=== PATIENT | male | born 1990 | race Caucasian/White ===

== ENCOUNTER 2019-09-25 16:56 | Inpatient (IN) | payer MEDICAID ==
[~2019-09-25] VITALS: Ht 172.7 cm; Wt 76.2 kg
[2019-09-25] MEDS ORDERED: OLAN7.5T2 PO (17:37)
[2019-09-25] MEDS ORDERED: DIVA-78 PO (17:37)
[2019-09-25] MEDS ORDERED: INFLUENZA VIRUS VACCINE QVS 2019-20 (3YR+)/PF 60 MCG/0.5 ML SYRINGE IM ONE (17:45)
[2019-09-25] MEDS ORDERED: ZOLPIDEM TARTRATE 10 MG TABLET PO PRN (17:45)
[2019-09-25 18:00] VITALS: BP 103/94
[2019-09-25 19:14] VITALS: BP 132/88
[2019-09-26 01:52] VITALS: BP 130/68
[2019-09-26] MEDS: LORazepam 2 MG TABLET PO PRN (02:08)
[2019-09-26 07:59] LABS: BASOPHILS % (AUTO) 0.6 % (0.0-2.0); EOSINOPHILS % (AUTO) 3.9 % (1.0-6.0); HEMOGLOBIN 16.9 g/dL (13.5-17.5); LYMPHOCYTES # (AUTO) 2.2 K/uL (1.0-4.8); MEAN CORPUSCULAR HEMOGLOBIN 31.1 pg (26.0-34.0); MEAN CORPUSCULAR HGB CONC 34.6 G/dL (31.0-37.0); MEAN CORPUSCULAR VOLUME 90 fL (80-100); MONOCYTES # (AUTO) 0.5 K/uL (0.1-1.0); MONOCYTES % (AUTO) 6.9 % (2.0-9.0); NEUTROPHILS # (AUTO) 3.7 K/uL (1.8-7.7); NEUTROPHILS % (AUTO) 55.6 % (40.0-70.0); PLATELET COUNT (AUTO) 272 K/uL (150-450); RED BLOOD CELL COUNT(AUTO) 5.45 MIL/uL (4.50-5.90); RED CELL DISTRIBUTION WIDTH 12.6 % (11.5-14.5)
[2019-09-26 08:07] LABS: HEMOGLOBIN A1C 5.6 % (4.5-6.2)
[2019-09-26] MEDS: HALOPERIDOL 5 MG TABLET PO PRN (08:28)
[2019-09-26 08:29] LABS: ALANINE AMINOTRANSFERASE 39 U/L (12-78); ALKALINE PHOSPHATASE 102 U/L (46-116); ANION GAP 8 mmol/L (8-16); ASPARTATE AMINOTRANSFERASE 11 U/L (15-37); BILIRUBIN,TOTAL 0.7 mg/dL (0.1-1.0); CALCIUM, TOTAL 9.4 mg/dL (8.8-10.5); CARBON DIOXIDE 29 mmol/L (22-29); CHLORIDE 104 mmol/L (98-107); CHOL/HDL RATIO 3.4 (4.2-7.3); CHOLESTEROL 147 mg/dL (131-200); FREE T4 (FREE THYROXINE) 1.14 ng/dL (0.76-1.46); GLOMERULAR FILTR. RATE CALC > 60 mL/min (>60); GLUCOSE,RANDOM 78 mg/dL (70-110); HDL CHOLESTEROL 43 mg/dL (40-60); LDL CHOL (CALC.) 92 mg/dL (0-130); POTASSIUM 3.9 mmol/L (3.5-5.1); SODIUM SERUM 141 mmol/L (136-145); THYROID STIMULATING HORMONE 1.85 uIU/mL (0.36-3.74); TOTAL PROTEIN, SERUM 7.4 g/dL (6.4-8.2); TRIGLYCERIDES 58 mg/dL (15-150); UREA NITROGEN, BLOOD 10 mg/dL (7-18)
[2019-09-26 08:32] VITALS: BP 115/63
[2019-09-26] MEDS ORDERED: MAG HYDROX/AL HYDROX/SIMETH ES 30 ML SUSPENSION UDCUP PO PRN (10:30)
[2019-09-26] MEDS ORDERED: CloNIDine HCL 0.1 MG TABLET PO PRN (10:30)
[2019-09-26] MEDS ORDERED: GuaiFENesin/D-METHORPHAN [SUGAR-FREE] 200-20MG/10 ML SYRUP UDCUP PO PRN (10:30)
[2019-09-26] MEDS ORDERED: ONDANSETRON HCL 4 MG TABLET PO PRN (10:30)
[2019-09-26] MEDS ORDERED: PETROLATUM,WHITE 28 GM JELLY TP PRN (10:30)
[2019-09-26] MEDS ORDERED: ACETAMINOPHEN 325 MG TABLET PO PRN (10:30)
[2019-09-26] MEDS ORDERED: DOCUSATE SODIUM 100 MG CAPSULE PO PRN (10:30)
[2019-09-26] MEDS ORDERED: MAGNESIUM HYDROXIDE SUSPENSION 30 ML UDCUP PO PRN (10:30)
[2019-09-26] MEDS ORDERED: IBUPROFEN 400 MG TABLET PO PRN (10:30)
[2019-09-26] MEDS ORDERED: LOPERAMIDE HCL 2 MG CAPSULE PO PRN (10:30)
[2019-09-26] MEDS ORDERED: ALBUTEROL SULFATE HFA 90 MCG/PUFF 8 GM INHALER IH PRN (10:30)
[2019-09-26] MEDS ORDERED: NICOTINE 14 MG/24 HOUR PATCH TD PRN (10:30)
[2019-09-26] MEDS: DIVALPROEX SODIUM 500 MG DR TABLET PO SCH (20:16)
[2019-09-26] MEDS: OLANZapine 7.5 MG TABLET PO SCH (20:16)
[2019-09-26 20:28] VITALS: BP 117/67
[2019-09-27 06:22] VITALS: BP 119/74
[2019-09-27 08:04] LABS: APPEARANCE,URINE CLEAR (CLEAR); BILIRUBIN,URINE NEGATIVE (NEGATIVE); GLUCOSE, URINE (UA) NEGATIVE (NEGATIVE); KETONES,URINE NEGATIVE (NEGATIVE); LEUKOCYTE ESTERASE ,URINE NEGATIVE (NEGATIVE); NITRATE,URINE NEGATIVE (NEGATIVE); OCCULT BLOOD,URINE NEGATIVE (NEGATIVE); PH,URINE 6.5 (5.0-8.0); PROTEIN,URINE NEGATIVE (NEGATIVE); UROBILINOGEN,URINE 0.2 mg/dL (<=1.0)
[2019-09-27 08:05] VITALS: BP 122/62
[2019-09-27 08:10] LABS: AMPHET/METH SCREEN,URINE NEGATIVE (NEGATIVE); BARBITURATE SCREEN, URINE NEGATIVE (NEGATIVE); BENZODIAZEPINES SCREEN,URINE NEGATIVE (NEGATIVE); CANNABINOID SCREEN,URINE NEGATIVE (NEGATIVE); COCAINE SCREEN,URINE NEGATIVE (NEGATIVE); METHADONE SCREEN, URINE NEGATIVE (NEGATIVE); OPIATE SCREEN,URINE NEGATIVE (NEGATIVE); PHENCYCLIDINE SCREEN,URINE NEGATIVE (NEGATIVE)
[2019-09-27 16:06] VITALS: BP 115/70
[2019-09-27] MEDS: OLANZapine 7.5 MG TABLET PO SCH (20:07)
[2019-09-27] MEDS: DIVALPROEX SODIUM 500 MG DR TABLET PO SCH (20:07)
[2019-09-28 05:01] VITALS: BP 119/65
[2019-09-28 08:26] VITALS: BP 121/67
[2019-09-28] MEDS: HALOPERIDOL 5 MG TABLET PO PRN (08:48)
[2019-09-28] MEDS: LORazepam 2 MG TABLET PO PRN (08:48)
[2019-09-28 16:11] VITALS: BP 126/90
[2019-09-28] MEDS: DIVALPROEX SODIUM 500 MG DR TABLET PO SCH (20:19)
[2019-09-28] MEDS: OLANZapine 7.5 MG TABLET PO SCH (20:19)
[2019-09-29 06:03] VITALS: BP 128/72
[2019-09-29 08:16] VITALS: BP 128/80
[2019-09-29 16:28] VITALS: BP 132/63
[2019-09-29] MEDS: DIVALPROEX SODIUM 500 MG DR TABLET PO SCH (20:44)
[2019-09-29] MEDS: OLANZapine 7.5 MG TABLET PO SCH (20:44)
[2019-09-30 06:36] VITALS: BP 126/74
[2019-09-30 08:15] VITALS: BP 126/64
[2019-09-30 16:09] VITALS: BP 125/83
== END 2019-09-30 18:45 | disposition home or self-care (01) | DRG 750 ==
LOC: B2S 17:40
PROVIDERS: ADMIT Psychiatry & Neurology Child & Adolescent Psychiatry; ATTEND Psychiatry & Neurology Child & Adolescent Psychiatry
DX: F25.1 Schizoaffective disorder, depressive type (principal); R45.851 Suicidal ideations; Z23 Encounter for immunization; F15.10 Other stimulant abuse, uncomplicated; G44.209 Tension-type headache, unspecified, not intractable; F10.10 Alcohol abuse, uncomplicated; F32.9 Major depressive disorder, single episode, unspecified; F41.9 Anxiety disorder, unspecified; F60.0 Paranoid personality disorder
CPT/HCPCS: 80307; 83036; 84439; 84443; 90686